=== PATIENT | female | born 1995 | race Two or more races ===

== ENCOUNTER 2018-08-18 10:05 | Emergency (ER) | payer MEDICARE ==
[~2018-08-18] VITALS: Ht 162.6 cm; Wt 89.0 kg
[2018-08-18] MEDS ORDERED: IBUPROFEN 800MG TABLET PO ONE (11:45)
[2018-08-18 11:55] VITALS: BP 147/95
== END 2018-08-18 15:00 | disposition left against medical advice (07) ==
LOC: ER 10:05
DX: M25.562 Pain in left knee (principal)
CPT/HCPCS: 81025; 99282